=== PATIENT | female | born 1960 | race Caucasian/White ===

== ENCOUNTER → 2023-08-23 15:49 | Outpatient (REF) | payer BC, SELFPAY | LOC: WDC 15:49 | PROVIDERS: ATTENDING PHYSICIAN Obstetrics & Gynecology Gynecology; FAMILY PHYSICIAN Family Medicine | DX: Z12.31 Encounter for screening mammogram for malignant neoplasm of breast (principal) | CPT/HCPCS: 77063; 77067 ==

== ENCOUNTER → 2024-08-23 15:54 | Outpatient (REF) | payer BC, SELFPAY | LOC: WDC 15:54 | PROVIDERS: ATTENDING PHYSICIAN Obstetrics & Gynecology Gynecology; FAMILY PHYSICIAN Family Medicine | DX: Z12.31 Encounter for screening mammogram for malignant neoplasm of breast (principal) | CPT/HCPCS: 77063; 77067 ==

== ENCOUNTER → 2024-09-28 12:56 | Outpatient (REF) | payer BC, SELFPAY | LOC: RAD 12:56 | PROVIDERS: ATTENDING PHYSICIAN Family Medicine | DX: M85.89 Other specified disorders of bone density and structure, multiple sites (principal); Z78.0 Asymptomatic menopausal state | CPT/HCPCS: 77080 ==

== ENCOUNTER → 2025-01-17 07:42 | Outpatient (REF) | payer BC, SELFPAY | LOC: HWEVLT 07:42 | PROVIDERS: ATTENDING PHYSICIAN Radiology Diagnostic Radiology | DX: I83.892 Varicose veins of left lower extremity with other complications (principal) | CPT/HCPCS: 93971 ==